=== PATIENT | female | born 1995 | race Hispanic/Latino ===

== ENCOUNTER 2018-03-26 00:10 | Emergency (ER) | payer SELFPAY ==
--- NOTE | 2018-03-26 00:59 | EDPHYS ---
Physician Documentation [facility] Name: Biju Caraballo Age: 22 yrs Sex: Female : 1995 Arrival Date: 03/26/2018 Time: 00:13 Bed 27 Private MD: ED Physician Luan Stout HPI: 03/26 00:55 This 22 yrs old Female presents to ER via Ambulatory with complaints of kb Abdominal Pain - Low. 00:55 The patient presents with abdominal pain in the lower abdomen. Onset: The kb symptoms/episode began/occurred at 14:00. The symptoms do not radiate. Associated signs and symptoms: none. The symptoms are described as crampy. Modifying factors: The symptoms are alleviated by nothing, the symptoms are aggravated by nothing. Severity of pain: At its worst the pain was mild moderate in the emergency department the pain is unchanged. The patient has experienced a previous episode. The patient has not recently seen a physician. Pt reports suprapubic pain that started at 1400 today. Reports same pain when she got last time. Did not take test at home. 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 - Social history:: Smoking status: Patient/guardian denies using tobacco. - Ebola Screening: : No symptoms or risks identified at this time. ROS: 00:55 Constitutional: Negative for fever, chills, and weight loss, Cardiovascular: Negative kb for chest pain, palpitations, and edema, Respiratory: Negative for shortness of breath, cough, wheezing, and pleuritic chest pain, Back: Negative for injury and pain, : Negative for injury, bleeding, discharge, and swelling, MS/Extremity: Negative for injury and deformity, Skin: Negative for injury, rash, and discoloration, Neuro: Negative for headache, weakness, numbness, tingling, and seizure. 00:55 Abdomen/GI: Positive for abdominal pain, of the suprapubic area. Exam: 00:55 Constitutional: This is a well developed, well nourished patient who is awake, alert, kb and in no acute distress. Head/Face: Normocephalic, atraumatic. Chest/axilla: Normal chest wall appearance and motion. Nontender with no deformity. No lesions are appreciated. Cardiovascular: Regular rate and rhythm with a normal S1 and S2. No gallops, murmurs, or rubs. Normal PMI, no JVD. No pulse deficits. Respiratory: Lungs have equal breath sounds bilaterally, clear to auscultation and percussion. No rales, rhonchi or wheezes noted. No increased work of breathing, no retractions or nasal flaring. Skin: Warm, dry with normal turgor. Normal color with no rashes, no lesions, and no evidence of cellulitis. MS/ Extremity: Pulses equal, no cyanosis. Neurovascular intact. Full, normal range of motion. Neuro: Awake and alert, GCS 15, oriented to person, place, time, and situation. Cranial nerves II-XII grossly intact. Motor strength 5/5 in all extremities. Sensory grossly intact. Cerebellar exam normal. Normal gait. 00:55 Abdomen/GI: Inspection: abdomen appears normal, Bowel sounds: normal, in all quadrants, Palpation: soft, in all quadrants, mild abdominal tenderness, in the suprapubic area. Vital Signs: 00:26 BP 122 / 79; Pulse 102; Resp 18; Temp 97.9; Pulse Ox 100% ; Weight 53.52 kg; Height 5 ea ft. 4 in. (162.56 cm); Pain 10/10; 00:26 Body Mass Index 20.25 (53.52 kg, 162.56 cm) ea MDM: 00:16 Patient medically screened. kb 00:55 Data reviewed: vital signs, nurses notes. Data interpreted: Pulse oximetry: on room air kb is 100 %. Interpretation: normal. Counseling: I had a detailed discussion with the patient and/or guardian regarding: the historical points, exam findings, and any diagnostic results supporting the discharge/admit diagnosis, lab results, the need for outpatient follow up, an OB/Gyne specialist, to return to the emergency department if symptoms worsen or persist or if there are any questions or concerns that arise at home. 03/26 00:21 Order name: Urine Microscopic Only kb 03/26 00:43 Order name: Urine Dipstick--Ancillary (enter results) ms 03/26 00:21 Order name: Urine Test (obtain specimen); Complete Time: 00:39 kb 03/26 00:21 Order name: Urine Dipstick-Ancillary (obtain specimen); Complete Time: 00:39 kb 03/26 00:43 Order name: Urine --Ancillary (enter results) ms Administered Medications: No medications were administered Disposition: 03/26/18 00:58 Discharged to Home. Impression: Less than 8 weeks gestation of . - Condition is Stable. - Discharge Instructions: First Trimester of , [id number]. - Medication Reconciliation Form, Thank You Letter, Antibiotic Education, Prescription Opioid Use form. - Follow up: Emergency Department; When: As needed; Reason: Worsening of condition. Follow up: Private Physician; When: 2 - 3 days; Reason: Recheck today's complaints, Continuance of care, Re-evaluation by your physician. Addendum: 03/29/2018 06:54 Co-signature as Attending Physician, Luan Stout MD I agree with the assessment and c dozier plan of care. Signatures: Dispatcher [employer] Francy Bearden, STONE LATHE OPERATOR-C STONE LATHE OPERATOR-Ckb Luan Stout MD MD cha Antunez, Elena, RN RN Anuel Adamson, RN RN rv Corrections: (The following items were deleted from the chart) 03/26 01:03 00:58 03/26/2018 00:58 Discharged to Home. Impression: Less than 8 weeks gestation of rv . Condition is Stable. Forms are Medication Reconciliation Form, Thank You Letter, Antibiotic Education, Prescription Opioid Use. Follow up: Emergency Department; When: As needed; Reason: Worsening of condition. Follow up: Private Physician; When: 2 - 3 days; Reason: Recheck today's complaints, Continuance of care, Re-evaluation by your physician. kb
--- NOTE | 2018-03-26 00:59 | ER ---
Nurse's Notes [facility] Name: Biju Caraballo Age: 22 yrs Sex: Female : 1995 Arrival Date: 03/26/2018 Time: 00:13 Bed 27 Private MD: Diagnosis: Less than 8 weeks gestation of Presentation: 03/26 00:24 Presenting complaint: Patient states: Reports she started having suprapubic pain ea yesterday that radiates to vel lower extremities \T\ 2PM yesterday. Transition of care: patient was not received from another setting of care. Onset of symptoms was March 26, 2018. Risk Assessment: Do you want to hurt yourself or someone else? Patient reports no desire to harm self or others. Initial Sepsis Screen: Does the patient meet any 2 criteria? No. Patient's initial sepsis screen is negative. Does the patient have a suspected source of infection? No. Patient's initial sepsis screen is negative. Care prior to arrival: None. 00:24 Method Of Arrival: Ambulatory ea 00:24 Acuity: MICHELLE 3 ea Triage Assessment: 00:25 General: Appears uncomfortable, Behavior is calm, cooperative, appropriate for age. ea Pain: Complains of pain in abdomen. GI: Abdomen is flat, non-distended. 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 - Social history:: Smoking status: Patient/guardian denies using tobacco. - Ebola Screening: : No symptoms or risks identified at this time. Screenin:27 Abuse screen: Denies threats or abuse. Nutritional screening: No deficits noted. ea Tuberculosis screening: No symptoms or risk factors identified. Fall Risk None identified. Assessment: 00:42 General: Appears in no apparent distress. comfortable, Behavior is calm, cooperative. rv Pain: Complains of pain in abdomen. Neuro: Level of Consciousness is awake, alert, obeys commands, Oriented to person, place, time, situation. Cardiovascular: Capillary refill < 3 seconds. Respiratory: Reports. Respiratory: Airway is patent. GI: Bowel sounds present X 4 quads. Abd is soft and non tender X 4 quads. : No signs and/or symptoms were reported regarding the genitourinary system. EENT: No signs and/or symptoms were reported regarding the EENT system. Derm: Skin is intact. Musculoskeletal: No signs and/or symptoms reported regarding the musculoskeletal system. Vital Signs: 00:26 BP 122 / 79; Pulse 102; Resp 18; Temp 97.9; Pulse Ox 100% ; Weight 53.52 kg; Height 5 ea ft. 4 in. (162.56 cm); Pain 10/10; 00:26 Body Mass Index 20.25 (53.52 kg, 162.56 cm) ea ED Course: 00:13 Patient arrived in ED. am2 00:16 Francy Kaye FNP-C [facility]. kb 00:16 Luan Stout MD is Attending Physician. kb 00:25 Triage completed. ea 00:28 Patient has correct armband on for positive identification. Bed in low position. Call ea light in reach. Side rails up X 1. 00:29 Arm band placed on right wrist. Patient placed in an exam room, on a stretcher, on ea pulse oximetry. 01:02 No provider procedures requiring assistance completed. Patient did not have IV access rv during this emergency room visit. Administered Medications: No medications were administered Outcome: 00:58 Discharge ordered by . kb 01:02 Discharged to home ambulatory. rv 01:02 Condition: good 01:02 Discharge instructions given to patient, Instructed on discharge instructions, follow up and referral plans. Demonstrated understanding of instructions, follow-up care. 01:03 Patient left the ED. rv Signatures: Francy Kaye FNP-C FNP-Ckb Moreno, Amanda am2 Jaclyn Alegre, RN RN Anuel Adamson RN RN rv
[2018-03-26 01:23] LABS: Urine Blood NEGATIVE (NEG); Urine Glucose NEGATIVE (NEG); Urine Protein NEGATIVE (NEG); Urine Specific Gravity >1.030 (1.005-1.030)
[2018-03-26 01:34] LABS: Urine Bacteria 20-50 /HPF (<20); Urine Culture Reflex Order REFLEXED; Urine RBC <5 /HPF (NONE SEEN)
== END 2018-03-26 01:03 | disposition home or self-care (01) ==
LOC: ER 00:10
DX: Z33.1 Pregnant state, incidental (principal)
CPT/HCPCS: 81003; 81015; 81025; 87086; 87088; 99283